=== PATIENT | female | born 1955 | race Two or more races ===

== ENCOUNTER 2022-01-17 18:58 | Emergency (ER) | payer OTHER ==
[~2022-01-17] VITALS: Ht 160 cm; Wt 73.0 kg
[2022-01-17 19:06] VITALS: BP 171/92
[2022-01-18] MEDS ORDERED: CIP03OS LEFTEYE (04:37)
== END 2022-01-18 04:50 | disposition home or self-care (01) ==
LOC: ER 18:58 → EDBD 18:58 → ER 01-18 04:50
DX: S05.02XA Injury of conjunctiva and corneal abrasion without foreign body, left eye, initial encounter (principal); Z79.2 Long term (current) use of antibiotics; X58.XXXA Exposure to other specified factors, initial encounter; Y93.89 Activity, other specified; Y92.89 Other specified places as the place of occurrence of the external cause; Y99.8 Other external cause status
CPT/HCPCS: 70450; 70480

== ENCOUNTER → 2023-05-24 | Outpatient (CLI) | payer OTHER ==
[~2023-05-24] MED LIST: CIP03OS LEFTEYE
== END | disposition home or self-care (01) ==
LOC: XYW 14:00
DX: J32.3 Chronic sphenoidal sinusitis (principal); R57.1 Hypovolemic shock; T68.XXXA Hypothermia, initial encounter; Y92.89 Other specified places as the place of occurrence of the external cause
CPT/HCPCS: 70551